=== PATIENT | female | born 1985 | race Caucasian/White ===

== ENCOUNTER 2017-07-17 17:25 | Inpatient (IN) | payer BC ==
[~2017-07-17] VITALS: Ht 154.9 cm; Wt 56.3 kg
[~2017-07-17 17:25] MED LIST: AMBIEN5 MG PO; CLARITIN10 M3 PO; ENDOCET 5-3251 EACH PO; FLOMAX0.4 MG PO; IBUPROFEN800 MG PO; PERCOCET 5/31 TABLET PO; PRENATAL TABLE1 EAC3 PO; PRILOSEC OTC20 MG PO; ZOFRAN ODT4 MG PO
[2017-07-17 17:58] VITALS: BP 111/69
[2017-07-17] MEDS ORDERED: TYLENOL SINUS1 EA16 PO (18:14)
[2017-07-17] MEDS ORDERED: PRILOSEC OTC20 MG PO (18:15)
[2017-07-17 18:54] LABS: BASOPHIL (%) 0.3 % (0-1); EOSINOPHIL (%) 3.3 % (0-5); EOSINOPHIL COUNT 0.5 K/uL (0-0.3); HEMATOCRIT 34.5 % (36.0-46.0); HEMOGLOBIN 11.3 G/DL (11.9-15.5); IMMATURE GRANULOCYTE (%) 1.4 % (0.0-0.7); LYMPHOCYTE (%) 14.4 % (15-42); LYMPHOCYTE COUNT 2.2 K/uL (1.0-2.8); MCH 29.1 PG (29.0-34.0); MCHC 32.8 G/DL (30.0-36.0); MCV 88.9 FL (83-99); MONOCYTE (%) 6.3 % (3-12); NEUTROPHIL (%) 74.3 % (45-76); NEUTROPHIL COUNT 11.4 K/uL (1.8-6.4); PLATELET COUNT 210 K/uL (156-360); RBC DIS.WIDTH-CV 13.2 % (11.8-14.6); RBC DIS.WIDTH-SD 43.2 % (39-53); RED BLOOD COUNT 3.88 M/uL (3.80-5.20); WHITE BLOOD COUNT 15.4 K/uL (4.1-10.2)
[2017-07-17 19:10] VITALS: BP 110/70
[2017-07-17 19:44] VITALS: BP 100/60
[2017-07-17 20:14] VITALS: BP 110/68
[2017-07-17 21:12] VITALS: BP 102/59
[2017-07-18] VITALS (25 sets, daily range): BP systolic 92–113; BP diastolic 48–64
[2017-07-18] MEDS ORDERED: IBUPROFEN800 MG PO (11:34)
[2017-07-19] MEDS ORDERED: ENDOCET 5-3251 EACH PO (15:14)
== END 2017-07-19 17:20 | disposition home or self-care (01) | DRG 775 ==
LOC: LDRP-OP 17:25 → 2WEST 17:26
PROVIDERS: Midwife
DX: O99.344 Other mental disorders complicating childbirth (principal); O99.354 Diseases of the nervous system complicating childbirth; O70.0 First degree perineal laceration during delivery; Z37.0 Single live birth; Z3A.37 37 weeks gestation of pregnancy; G43.909 Migraine, unspecified, not intractable, without status migrainosus; F41.0 Panic disorder [episodic paroxysmal anxiety]; H91.92 Unspecified hearing loss, left ear; O36.5931 Maternal care for other known or suspected poor fetal growth, third trimester, fetus 1; K90.0 Celiac disease; O99.62 Diseases of the digestive system complicating childbirth; O69.1XX1 Labor and delivery complicated by cord around neck, with compression, fetus 1; Z87.442 Personal history of urinary calculi
CPT/HCPCS: 85025; C1755; G0378; J2405; J7120